=== PATIENT | female | born 1990 | race Caucasian/White ===

== ENCOUNTER → 2023-08-11 13:21 | Outpatient (CLI) | payer BC, SELFPAY ==
--- NOTE | 2023-08-11 13:21 | US_ITS ---
PROCEDURE: US TRANSVAGINAL CLINICAL INDICATION: heavy periods COMPARISON: No exams were available for comparison FINDINGS: Transvaginal sonographic images of the pelvis were obtained. UTERUS: 11.6cm x 7.9cmx 8.1cm with a combined endometrial thickness of 7.1mm. Fibroid 1: 5.9 cm x 6.1 cm x 6.1 cm, fundal Fibroid 2: 0.9 cm x 0.9 cm x 1.0, adjacent to uterus Fibroid 3: 2.2 cm x 1.6 cm x 1.9 cm, fundal LEFT OVARY: 5.0cmx3.9cmx3.1cm with a volume of 32.3ml. Follicle measuring 3.5 cm x 4.0 cm x 2.7 cm. RIGHT OVARY: 3.5cmx 1.8cmx2.1cm with a volume of 6.8ml. Both ovaries are seen and appear normal. Doppler flow to both ovaries are seen. There is no fluid in the cul-de-sac. IMPRESSION: 1. Uterus is anteverted and enlarged. There are 3 fibroids within the uterus. The largest measures 6.1 cm and is located in the fundus of the uterus. 2. Within the left ovary there is a follicle measuring 4.0 cm. 3. The right ovary appears normal. 4. No fluid in the cul-de-sac. Dictated by: Carlitos Barone MD 08/11/2023 15:02 Carlitos Barone MD in OV 08/11/2023 15:02
== END ==
LOC: RAD 13:21
PROVIDERS: PCP Nurse Practitioner Family; Visit Provider Nurse Practitioner Obstetrics & Gynecology
DX: N93.9 Abnormal uterine and vaginal bleeding, unspecified (principal)
CPT/HCPCS: 76830

== ENCOUNTER 2023-11-22 14:30 | Outpatient (CLI) | payer BC, SELFPAY ==
[2023-11-22 15:02] LABS: Basophils # 0.1 K/mm3 (0-0.2); Basophils % 1.1 % (0.1-2.0); Eosinophils # 0.1 K/mm3 (0.0-0.4); Eosinophils % 1.5 % (0.1-12.0); Hemoglobin 13.1 g/dL (12.2-16.2); Lymphocytes % 32.2 % (10-50); Mean Corpuscular HGB Conc 33.5 g/dL (31.8-35.4); Mean Corpuscular Hemoglobin 33.1 pg (27.0-31.2); Mean Corpuscular Volume 98.7 fl (81-99); Mean Platelet Volume 7.9 fl (7.4-10.4); Monocytes # 0.3 K/mm3 (0.1-1.0); Monocytes % 5.5 % (1.7-9.3); Neutrophils # 3.7 K/mm3 (1.8-7.8); Neutrophils % 59.7 % (37.0-80.0); Platelet Count 225 K/mm3 (142-424); Red Blood Count 3.96 M/mm3 (4.20-5.40); Red Cell Distribution Width 12.2 % (11.5-17.5); White Blood Count 6.2 K/mm3 (4.8-10.8)
[2023-11-22 15:16] LABS: Chloride 106 mmol/L (98-107); Potassium 3.8 mmoL/L (3.5-5.1); Sodium 137 mmol/L (136-145)
[2023-11-22 15:18] LABS: Blood Urea Nitrogen 15 mg/dl (7-17); Estimated Glomerular Filt Rate 83 ml/min (>60); GFR (African American) 100 ML/MIN (>60)
[2023-11-22 15:19] LABS: Alanine Aminotransferase 25 U/L (12-78); Albumin Level 4.1 g/dl (3.5-5.0); Albumin/Globulin Ratio 1.7 (1.1-1.8); Alkaline Phosphatase 58 U/L (38-126); Anion Gap 5.8 mEq/L (5-15); Aspartate Amino Transferase 24 U/L (14-36); Bilirubin,Total 0.2 mg/dl (0.2-1.3); Calcium 9.3 mg/dl (8.4-10.2); Carbon Dioxide 29 mmol/L (22.0-30.0); Globulin 2.4 g/dL (1.3-3.2); Glucose 92 mg/dl (74-100); Total Protein,Serum 6.5 g/dl (6.3-8.2)
[2023-11-22 15:40] LABS: HCG,Quantitative < 2 mIU/ml (0-5.42)
== END 2023-11-22 23:59 ==
LOC: LAB 14:31
PROVIDERS: PCP Nurse Practitioner Family; Visit Provider Nurse Practitioner Obstetrics & Gynecology
DX: Z01.818 Encounter for other preprocedural examination (principal); N92.0 Excessive and frequent menstruation with regular cycle; D25.9 Leiomyoma of uterus, unspecified
CPT/HCPCS: 36415; 80053; 84702; 85025; 86850

== ENCOUNTER 2023-11-29 06:26 | Inpatient (IN) | payer BC, SELFPAY ==
[2023-11-29] VITALS (22 sets, daily range): BP systolic 121–142; BP diastolic 66–90; PULSE 67–99; RESP 16–20; TEMP 36.4–43; O2SAT 95–100; BMI 24.8
[2023-11-29] MEDS: LACTATED RINGERS 1000ML 1,000 ML 25 ML IV (06:42)
--- NOTE | 2023-11-29 07:08 | P.PNANES_ITS ---
[facility] Disclaimer: The information contained in this section may have been updated after the patient was seen, as this information can be updated by other users. Medical History History of COVID-19 Sinus headache Anxiety Rheumatoid arthritis Surgical History Hx of cholecystectomy History of breast augmentation Family History Sister Cancer Mother Cancer Other Hyperlipidemia Hypertension Social History Smoking Status: Current every day smoker alcohol intake: current substance use type: denies use current occupational status: employed Travel in the last 8 weeks: Inside the [place] [facility] Anesthesia Checklist Patient Identification Patient Identification: Arm Band and Verbal (Name & ) Structural Data Admitted From: Home Planned Operative Procedure/s: [facility] Consent for Planned Operative Procedure(s) Verified: Yes NPO Status Verified Time NPO: 00:00 Chart Verification Results Verified: CBC, BMP and HCG Additional verifications Anesthesia Reactions: No Hx Blood Transfusions: No Blood Transfusion Reaction: No Airway Assessment Mallampati Score:: Class II C-Spine Mobility Assessed: Yes TMJ Mobility Assessed: Yes Dentition: Good Dentition Neurological Assessment Level of Consciousness: Awake Hx Seizures: No Numbness or tingling in extremities: No Anesthesia Plan Anesthesia Risk discussed: Yes Anesthesia Plan: Verified ASA Class: II Anesthesia Type: General w/block
--- NOTE | 2023-11-29 07:22 | HMH.PHAINT1 ---
Pharmacy Intervention Comments: HOME MEDICATION LIST VERIFIED VIA OUTSIDE PHARMACY
[2023-11-29] MEDS: CEFAZOLIN SODIUM 1 GM in 0.9 % SODIUM CHLORIDE 50 ML IV ×3 (07:27→23:07)
--- NOTE | 2023-11-29 09:22 | P.PNANES_ITS ---
[facility] Anesthesia Record Part I Anesthesia Record I Intake, IV Amount: 1,000 Hydration: Adequate Estimated blood loss (mL): 300 Urine output (mL): 100 Blood Pressure: 121/66 SaO2: 95 Pulse Rate: 72 Airway Patency: Patent Respiratory Rate: 18 Temperature: 97.6 F Patient is:: Drowsy and Oral/Nasal airway Stable to PACU at:: 09:15
--- NOTE | 2023-11-29 09:23 | EXP.OP.NOTE ---
Date of procedure: 11/29/23 Pre-op Diagnosis:: Pelvic pain, dyspareunia, fibroid uterus, menorrhagia Post-op Diagnosis:: Pelvic pain, dyspareunia, fibroid uterus, menorrhagia Procedure performed:: Total abdominal hysterectomy, bilateral Surgeon:: Carlitos Barone MD Healthcare Financial Analyst(s):: Dr. Malloy SYSTEMS SUPPORT OFFICER:: Emilia Mast Anesthesia: GETA Estimated blood loss (mL): 300 Clinical Note:: She is a 33-year-old 2 para 2 lady who complains of pelvic pressure and frequency and urgency of urination. Ultrasound confirmed that she had a 7 cm fibroid. She also has had severe menorrhagia that did not resolve with control pills. As result of that she was offered total abdominal hysterectomy and bilateral salpingectomy. Operative findings:: She had an anteverted bulky uterus with a 7 cm fibroid to the left of center. There was also a couple of smaller fibroids in the subserosal area. Operative note:: She was taken the operating room where general anesthesia was found be adequate. She was prepped and draped in the normal sterile fashion in the supine position. A Cochran catheter was in the bladder. A midline incision was made with knife and then carried through to the underlying layer of fascia with cautery. The fascia was opened in midline with cautery and extended superiorly and inferiorly with cautery. The rectus muscles were then in the midline and the peritoneum identified, tented up and entered sharply with Metzenbaum scissors. This incision was then extended superiorly and inferiorly with cautery. An O'Win-O'Cabello retractor was then placed within the abdominal cavity and the bowel was packed away with warm moist packs. The uterine cornua were grasped with long [place] clamps. The left round ligament was then suture-ligated, cut and tagged. The anterior peritoneum was then opened to the midline. The posterior aspect of the broad ligament was then fenestrated isolating the utero-ovarian pedicle. This was then clamped cut and doubly suture-ligated. We then further freed up the bladder anteriorly and using curved Antony clamps clamped across the uterine artery at the level of the internal os. This was clamped cut and suture-ligated. This was followed by the cardinal ligaments which were taken down in a [id number] fashion on the left side. We clamped cut and suture-ligated as we went. We then turned our attention to the patient's right side. Similarly the left round again was then suture-ligated cut and tagged. We then took down the anterior peritoneum to the midline joining up with the other side. The bladder was further dissected off anteriorly using both blunt and sharp dissection. The posterior aspect of the broad ligament was fenestrated with my finger and the utero-ovarian ligament was isolated. This was clamped cut and doubly suture-ligated. There was a small amount of bleeding along the peritoneum between the round ligament and uterine pedicle so this was clamped and suture-ligated. We then took down the cardinal ligaments on the right side clamping cutting and suture ligating as we went. The uterus was then freed up and Antony clamps were placed across the vaginal fornices bilaterally. The uterus and cervix was then dissected away from the top of the vagina. This was sent to pathology. The vaginal fornices on the left side was then suture-ligated with Antony suture and tagged. Starting on the opposite side I then closed the vaginal vault using a running locked 0 Vicryl suture. There was a small amount of bleeding on the posterior aspect of the peritoneum and using interrupted 2-0 Vicryl suture I was able to control bleeding here. I then elected to close the peritoneum using 2-0 Vicryl suture in a locked fashion from right to left. While doing this I placed a small piece of Surgicel underneath the peritoneum. Pelvis was then rinsed and hemostasis was assured. I had a small piece of Surgicel left so I elected to place it over the vaginal vault. The sponges and instruments were then removed from the abdominal cavity. Once again hemostasis was assured. The peritoneum was then closed using running 2-0 Vicryl suture. The fascia was closed by first grasping inferiorly with a [place] clamp and closing the fascia using running #1 Vicryl to the midline. This was tied. We then started superiorly and closed the fascia from superior to midline. Suture was tied individually. I then rinsed the incision well with warm saline and closed the subcutaneous tissues with running 2-0 Monocryl suture. The skin was closed with absorbable sutures. The incision was then cleaned with Hibiclens. Steri-Strips were applied to the incision. A sterile dressing was applied. She tolerated the procedure well and was taken to the recovery room in excellent condition. All sponge, instrument and needle counts were correct. The estimated blood loss was approximately 300 cc. Condition: stable Disposition: PACU Specimens:: Uterus and bilateral fallopian tubes. Complications:: None
[2023-11-29] MEDS: MEPERIDINE 25MG/ML 1ML SYRINGE 25 MG IV (09:35)
[2023-11-29] MEDS: MORPHINE 2MG/ML SYRINGE 2 MG IV (09:40)
[2023-11-29] MEDS: HYDROMORPHONE 2MG/ML SYRINGE 0.5 MG IV (09:51)
[2023-11-29] MEDS: LACTATED RINGERS 1000ML 1,000 ML 125 ML IV ×2 (10:16→19:16)
[2023-11-29] MEDS: KETOROLAC 30MG/ML VIAL 30 MG IV ×3 (10:17→20:46)
[2023-11-29] MEDS: PROMETHAZINE HCL 25MG/ML 1ML VIAL 12.5 MG IV (10:23)
[2023-11-29] MEDS: HYDROMORPHONE 2MG/ML SYRINGE 1 MG IV ×2 (10:32→13:22)
--- NOTE | 2023-11-29 11:04 | SUR.PHASEI ---
955- report called and given to [facility] RN. PAtitne taken upstairs via OB Bed. VSS upon arrival. Drainage noted on abdominal dressing. Abdominal dressing marked with skin marker prior to arrival to OB. Annel and OB RN at bedside.
[2023-11-29 11:32] LABS: Microscopic,Cath URINE MICROSCOPIC (MICROSCOPIC)
[2023-11-29 11:33] LABS: Appearance,Urine/Cath CLEAR (Clear); Bilirubin,Cath Negative (Negative); Blood, Urine/Cath TRACE-I (Negative); Color,Urine/Cath YELLOW (Yellow); Glucose,Urine/Cath (UA) Negative (Negative); Ketones,Urine/Cath Negative (Negative); Leukocyte Esterase,Cath Negative (Negative); Nitrate,Cath Negative (Negative); Protein,Urine/Cath Negative (Negative); Specific Gravity, Urine/Cath >= 1.030 (1.005-1.030); Urobilinogen,Cath 0.2 EU/dl (0.2)
[2023-11-29 11:57] LABS: Bacteria,Urine/Cath TRACE /lpf; Mucus,Urine/Cath Trace /lpf; WBC,Urine/Cath Occasional #/hpf (0-3)
--- NOTE | 2023-11-29 16:30 | PC.NURSE ---
Reassessment done at this time- no changes noted. patient controlled with prn meds. adequate output noted. lungs cta and bowel sounds active x4. patient has not passed gas yet. iv infusing. scuds in place. no edema noted. pulses 2+. plan is to d/c catheter and advance diet. poc explained to patient and she v/u
[2023-11-29] MEDS: SENNOSIDES 8.6MG/DOCUSATE 50MG TABLET 1 TAB PO (18:16)
[2023-11-29] MEDS: OXYCODONE 5MG IMMEDIATE RELEASE TABLET 10 MG PO ×2 (18:16→23:59)
--- NOTE | 2023-11-29 18:20 | PC.NURSE ---
dressing changed r/t serosang saturation. pt tolerated well
[2023-11-30] VITALS (7 sets, daily range): BP systolic 120–130; BP diastolic 69–90; PULSE 66–83; RESP 17–18; TEMP 36.4–37.1; O2SAT 96–99
[2023-11-30] MEDS: KETOROLAC 30MG/ML VIAL 30 MG IV ×4 (03:34→21:32)
[2023-11-30] MEDS: LACTATED RINGERS 1000ML 1,000 ML 125 ML IV (04:08)
[2023-11-30] MEDS: OXYCODONE 5MG IMMEDIATE RELEASE TABLET 10 MG PO ×4 (06:35→19:04)
[2023-11-30 06:41] LABS: Basophils # 0.1 K/mm3 (0-0.2); Basophils % 0.6 % (0.1-2.0); Eosinophils # 0.1 K/mm3 (0.0-0.4); Eosinophils % 1.5 % (0.1-12.0); Hemoglobin 10.8 g/dL (12.2-16.2); Lymphocytes # 1.8 K/mm3 (0.7-4.5); Lymphocytes % 20.7 % (10-50); Mean Corpuscular HGB Conc 31.8 g/dL (31.8-35.4); Mean Corpuscular Volume 100.6 fl (81-99); Mean Platelet Volume 7.8 fl (7.4-10.4); Monocytes # 0.4 K/mm3 (0.1-1.0); Neutrophils # 6.3 K/mm3 (1.8-7.8); Neutrophils % 72.2 % (37.0-80.0); Platelet Count 199 K/mm3 (142-424); Red Blood Count 3.37 M/mm3 (4.20-5.40); Red Cell Distribution Width 12.4 % (11.5-17.5); White Blood Count 8.8 K/mm3 (4.8-10.8)
[2023-11-30 07:07] LABS: Chloride 107 mmol/L (98-107)
[2023-11-30 07:08] LABS: Potassium 3.5 mmoL/L (3.5-5.1); Sodium 136 mmol/L (136-145)
[2023-11-30 07:11] LABS: Anion Gap 2.5 mEq/L (5-15); Blood Urea Nitrogen 7 mg/dl (7-17); Calcium 8.1 mg/dl (8.4-10.2); Carbon Dioxide 30 mmol/L (22.0-30.0); Creatinine Clearance Estimated 170 mL/min (50-200); Estimated Glomerular Filt Rate 115 ml/min (>60); GFR (African American) 139 ML/MIN (>60); Glucose 103 mg/dl (74-100)
--- NOTE | 2023-11-30 09:00 | PC.NURSE ---
IV saline locked at this time.
--- NOTE | 2023-11-30 09:20 | EXP.ANES.II ---
[facility] Anesthesia Record Part II Anesthesia Record Part II Discharge Time: 09:45 Destination: Surgical Day Care (OP Surgery) PACU nurse assessment reviewed?: Yes Patient Condition:: Good Anesthesia Complications:: None Swallowing reflex intact?: Yes Airway Patency: Patent Cyanosis?: No Blood Pressure: 130/78 SaO2: 99 Respiratory Rate: 18 Pulse Rate: 83 Temperature: 97.5 F Mental Status: Alert & Oriented Pain level:: 3 Nausea and/or vomitting:: None Intake, IV Amount: 0 Hydration: Adequate
[2023-11-30] MEDS: NICOTINE 21MG/24HR PATCH 21 MG TD (09:28)
[2023-11-30] MEDS: SIMETHICONE 80MG CHEWABLE TABLET 160 MG PO ×2 (09:28→14:55)
--- NOTE | 2023-11-30 09:39 | EXP.ACUTE.PN ---
Subjective *Date: 11/30/23 *Time: 09:39 Interval history: She is 1 day postop from a TY and bilateral salpingectomy. She is doing very well. Midline incision looks good. She denies any chest pain, shortness of breath or calf tenderness. She has been eating and drinking and ambulating. She is voiding well. hemoglobin is 10.8. Electrolytes are normal. Medical Exam Vital signs and Labs for Last 24 Hours: Vital Signs Temp Pulse Resp BP Pulse Ox O2 Del Method O2 Flow Rate 11/30/23 09:20 18 11/30/23 06:37 Room Air 11/30/23 05:03 Room Air 11/30/23 04:11 97.7 F 66 17 122/69 98 Room Air 11/30/23 04:04 98 Room Air 11/30/23 03:39 Room Air 11/30/23 01:24 Room Air 11/30/23 00:02 Room Air 11/29/23 23:09 Room Air 11/29/23 22:22 Room Air 11/29/23 20:46 Room Air 11/29/23 20:30 97 Room Air 11/29/23 20:15 98.6 F 78 17 123/71 97 Room Air 11/29/23 19:45 Room Air 11/29/23 18:38 Room Air 11/29/23 17:43 Room Air 11/29/23 17:00 99 H 18 126/76 99 Room Air 11/29/23 16:30 Room Air 11/29/23 16:00 69 18 142/90 H 99 Room Air 11/29/23 15:00 98.2 F 67 18 126/74 99 Room Air 11/29/23 14:07 Nasal Cannula 2 11/29/23 14:00 70 16 124/80 98 Nasal Cannula 2 11/29/23 13:00 75 17 135/90 99 Nasal Cannula 2 11/29/23 12:30 73 17 134/89 98 Nasal Cannula 2 11/29/23 12:04 Nasal Cannula 2 11/29/23 12:00 98.2 F 73 17 132/86 98 Nasal Cannula 2 11/29/23 11:30 82 16 130/83 98 Nasal Cannula 2 11/29/23 11:00 98.2 F 75 16 129/84 95 Room Air 11/29/23 10:45 77 16 131/79 95 Nasal Cannula 2 11/29/23 10:30 Room Air 11/29/23 10:30 78 16 141/81 H 96 Room Air 11/29/23 10:30 99 Room Air 11/29/23 10:15 98.9 F 81 18 135/84 98 Room Air 11/29/23 10:00 98.9 F 83 18 130/78 99 Room Air 11/29/23 10:00 98.9 F 83 18 130/78 99 Room Air 11/29/23 09:45 97.5 F L 83 18 130/78 99 Room Air Intake and Output 11/29/23 11/30/23 11/30/23 19:59 03:59 11:59 Intake Total 2254 / 2254 Output Total 1200 / 2150 400 / 2150 550 / 2150 Balance -1200 / 104 -400 / 104 1704 / 104 Intake: Intake, Total IV Amount 2254 / 2254 Lactated Ringers 1000ML 1,000 2254 / 2254 ml @ 125 mls/hr IV .Q8H [facility] Rx# :[id number] Output: Output, Urine Amount 400 / 950 550 / 950 Output, Urine Amount (Catheter) 1200 / 1200 Cochran 1200 / 1200 Laboratory Results - last 24 hr 11/29/23 07:35: Urine Color Yellow, Urine Appearance Clear, Urine pH 7.0, Ur Specific [place] >= 1.030, Urine Protein Negative, Urine Glucose (UA) Negative, Urine Ketones Negative, Urine Blood Trace-i, Urine Nitrate Negative, Urine Bilirubin Negative, Urine Urobilinogen 0.2, Ur Leukocyte Esterase Negative, Urine RBC 3-5, Urine WBC Occasional, Ur Squamous Epith Cells 3-5, Urine Bacteria Trace 11/30/23 06:20: WBC 8.8, RBC 3.37 L, Hgb 10.8 L, Hct 34.0 L, MCV 100.6 H, MCH 32.0 H, MCHC 31.8, RDW 12.4, Plt Count 199, MPV 7.8, Neut % (Auto) 72.2, Lymph % (Auto) 20.7, Bibb % (Auto) 5.0, Eos % (Auto) 1.5, Baso % (Auto) 0.6, Neut # (Auto) 6.3, Lymph # (Auto) 1.8, Bibb # (Auto) 0.4, Eos # (Auto) 0.1, Baso # (Auto) 0.1, Sodium 136, Potassium 3.5, Chloride 107, Carbon Dioxide 30, Anion Gap 2.5 L, BUN 7, Creatinine 0.60, Estimated Creat Clear 170, Estimated GFR 115, Est GFR ( Amer) 139, Glucose 103 H, Calcium 8.1 L I & O for Labs for Last 24 Hours: Intake & Output 11/27/23 11/28/23 11/29/23 11/30/23 11:59 11:59 11:59 11:59 Intake Total 1000 / 1000 2254 / 2254 Output Total 2150 / 2150 Balance 1000 / 999 104 / 104 Weight 178 lb Head: Present atraumatic ENT: Present normal exam Neck: Present normal inspection Respiratory: Present normal respiratory effort; Absent accessory muscle use Cardiac: Present Reg Rate and Rhythm GI: Present soft and normal bowel sounds; Absent distention, tenderness, guarding, rebound or rigidity Comments:: Her incision is clean and dry. Rectal (female): Present deferred (female): Present deferred Extremities: Present normal inspection and full ROM; Absent tenderness Comment:: No calf tenderness. Skin: Present intact; Absent cyanosis Assessment and Plan *Assessment and plan (1) Fibroid uterus: Status: Acute Qualifiers: Uterine leiomyoma location: intramural Qualified Code(s): D25.1 - Intramural leiomyoma of uterus Category: Medical Code(s): D25.9 - Leiomyoma of uterus, unspecified (2) Menorrhagia: Status: Acute Qualifiers: Menorrhagia type: with irregular cycle Qualified Code(s): N92.1 - Excessive and frequent menstruation with irregular cycle Category: Medical Code(s): N92.0 - Excessive and frequent menstruation with regular cycle (3) Dyspareunia: Status: Acute Category: Medical (4) Dysmenorrhea: Status: Acute Category: Medical Code(s): N94.6 - Dysmenorrhea, unspecified Plan She is doing very well 1 day post hysterectomy. Her vital signs are stable. She is eating and drinking and ambulating. She has not had a bowel movement yet. She had a tap block at the time of her surgery and this seems to be helping with her lower abdominal pain. Since she is doing so well today, we will consider sending her home tomorrow.
--- NOTE | 2023-11-30 10:00 | PC.NURSE ---
Medicated with Oxycodone 10mg PO prior to taking a shower. Saline lock secured.
--- NOTE | 2023-11-30 10:15 | PC.NURSE ---
Getting up to shower. Bed linens changed.
--- NOTE | 2023-11-30 10:22 | PC.NURSE ---
Pt taken a shower at this time. Ambulating without difficulty. Room straightened and bed linens changed. Pt's mother remains at bs attentive to pt's needs. IV fluids stopped and IV saline lock secured for shower.
--- NOTE | 2023-11-30 10:40 | PC.NURSE ---
Pt out of the shower, abdominal binder applied to abdomen per request. Family x2 at bs visiting.
--- NOTE | 2023-11-30 11:29 | PC.NURSE ---
Medicated with Oxycodone 10mg PO prior to getting a shower.
--- NOTE | 2023-11-30 13:50 | PC.NURSE ---
Pt sleeping soundly. Pt's remains at bs.
--- NOTE | 2023-11-30 18:08 | PC.NURSE ---
Abdominal binder reapplied. Pt up ambulating in the hallway. Incision remains SKETCH ARTIST with loose abd pad over it. Denies problems with voiding. (+)BS all quads. Tolerating regular diet. Lungs remain clear throughout. Abdomen slightly swollen, soft to palpate. Incision well approximated, active bleeding noted. IV remains saline locked.
[2023-11-30] MEDS: HYDROMORPHONE 2MG/ML SYRINGE 1 MG IV (20:04)
[2023-12-01] MEDS: OXYCODONE 5MG IMMEDIATE RELEASE TABLET 10 MG PO ×2 (00:58→10:05)
[2023-12-01] MEDS: KETOROLAC 30MG/ML VIAL 30 MG IV (03:11)
[2023-12-01 03:18] VITALS: BP 134/86; PULSE 67; RESP 16; TEMP 36.7; O2SAT 97
[2023-12-01] MEDS: ACETAMINOPHEN 500MG TAB 1000 MG PO (07:04)
--- NOTE | 2023-12-01 07:07 | PC.NURSE ---
Pt has complained of lower mid abdominal pain and right shoulder pain multiple times t/o shift requiring PRN oxycodone and dilaudid. Incision to lower abd BETHANIE. Scant amount of drainage noted from bottom of incision. Pt has been ambulating room independently. Pt states she had 1 BM through night.
--- NOTE | 2023-12-01 08:13 | PC.NURSE ---
Pt taking a shower at this time. Incision remains MANAGER STRATEGIC DEVELOPMENT, well approximated and healing well. Steri-strips intact. Pt reports having BM last night. BS x4 hyperactive this a.m. Lungs remain clear throughout. Reports voiding well. Saline lock remains rt/AC.
--- NOTE | 2023-12-01 08:30 | PC.NURSE ---
here to see pt. Pt is currently taking a shower. States he will return around noon.
[2023-12-01 08:31] VITALS: BP 127/87; PULSE 75; RESP 18; TEMP 36.8; O2SAT 99
[2023-12-01 08:47] VITALS: O2SAT 99
[2023-12-01] MEDS: KETOROLAC 10MG TABLET 10 MG PO (10:04)
--- NOTE | 2023-12-01 13:25 | EXP.DC.SUM ---
General Admission date:: 11/29/23 Discharge date: 12/01/23 HPI HPI HPI: She is a 33-year-old lady who complains of extremely heavy periods. She also has pressure and discomfort. She has pain with intercourse. She has multiple fibroids in the uterus the largest of which is 6 cm. As result of that she was offered total abdominal hysterectomy and bilateral salpingectomy. Hospital Course Hospital Course Hospital Course: On November 29, 2023 she underwent a total abdominal hysterectomy and bilateral salpingectomy through a midline incision. She has done well postoperatively and has remained afebrile throughout her hospitalization. She is postoperative day 2. She had a TAP block that seems to be working well. She denies any shortness of breath, calf tenderness or chest pain. She is eating and drinking and ambulating. She has had a bowel movement. She is voiding well. She will be discharged home to follow-up with me in approximately 2 weeks time. She will continue with her home medications. She was given a prescription for Toradol 10 mg to take every 6 hours as needed for pain, number 20 tablets as well as Percocet 5/325 number 20 tablets. She was given the usual instructions with respect to limiting her activity, driving and sexual activity. She was given instructions with respect to wound care. Her condition on discharge is stable and improved. Exam Data for Last 24 hours Vital signs and Labs for Last 24 Hours: Temp Pulse Resp BP Pulse Ox O2 Del Method O2 Flow Rate 98.3 F 75 18 127/87 99 Room Air 2 12/01/23 08:31 12/01/23 08:31 12/01/23 08:31 12/01/23 08:31 12/01/23 08:47 12/01/23 10:10 11/29/23 14:07 I & O for Last 24 hours: Intake & Output 11/29/23 11/30/23 12/01/23 12/02/23 11:59 11:59 11:59 11:59 Intake Total 1000 / 1000 2254 / 2254 Output Total 2150 / 2150 0 / 0 Balance 1000 / 1000 104 / 104 0 / 0 Weight 178 lb Constitutional Constitutional: no acute distress *Routine HEENT Exam Head: Present normocephalic *Routine Neck Exam Neck: Present supple and full ROM *Routine Respiratory Exam Respiratory: Present normal respiratory effort; Absent accessory muscle use *Routine Cardiovascular Exam Cardiovascular: Present RRR *Routine Abdominal Exam Abdominal: Present soft and normoactive bowel sounds; Absent tenderness, distended or rebound Comments: Her incision is clean and dry. DS: Diagnosis Discharge Diagnosis (1) Fibroid uterus: Status: Acute Code(s): D25.9 - Leiomyoma of uterus, unspecified Qualifiers: Uterine leiomyoma location: intramural Qualified Code(s): D25.1 - Intramural leiomyoma of uterus (2) Menorrhagia: Status: Acute Code(s): N92.0 - Excessive and frequent menstruation with regular cycle Qualifiers: Menorrhagia type: with regular cycle Qualified Code(s): N92.0 - Excessive and frequent menstruation with regular cycle (3) Dyspareunia: Status: Acute (4) Dysmenorrhea: Status: Acute Code(s): N94.6 - Dysmenorrhea, unspecified Meds Home Medications and Allergies Home Medications Medication Instructions Recorded Confirmed Type multivitamin with iron 1 tab PO DAILY 10/01/21 11/29/23 History norgestimate 0.25 mg-ethinyl 1 tab PO DAILY #84 tabs 11/09/22 11/29/23 Rx estradiol 35 mcg tablet (Sprintec (28)) hydroxychloroquine 200 mg tablet 400 mg PO DAILY 07/05/23 11/29/23 History (Plaquenil) fluoxetine 40 mg capsule (Prozac) 40 mg PO DAILY 08/31/23 11/29/23 History ketorolac 10 mg tablet 10 mg PO Q6H #20 tabs 12/01/23 Rx oxycodone-acetaminophen 5 mg-325 1 tab PO Q6H PRN pain #20 tabs 12/01/23 Rx mg tablet New Prescriptions to Start Prescriptions: ketorolac Carlitos Barone oxycodone-acetaminophen Carlitos Barone Allergies Allergy/AdvReac Type Severity Reaction Status Date / Time codeine Allergy Verified 11/29/23 06:47 [From Tylenol-Codeine #3] Discharge Plan Disposition Patient Disposition: Home, Self-Care Condition: Good Discharge Order Discharge Orders: Discharge Order (Routine); Ordered 12/01/23 Ordered By: Carlitos Barone Follow up Plan Follow up with: Carlitos Barone MD [Staff Physician] - 12/20/23 8:45 am Prescriptions/Medication Reconciliation: New ketorolac 10 mg Tablet 10 mg PO Q6H Qty: 20 0RF oxycodone-acetaminophen 5-325 mg tablet 1 tab PO Q6H PRN (Reason: pain) Qty: 20 0RF Continued multivitamin with iron Tablet 1 tab PO DAILY hydroxychloroquine [Plaquenil] 200 mg tablet 400 mg PO DAILY Patient Comments: TAKE 1 TABLET 2 TIMES EACH DAY fluoxetine [Prozac] 40 mg capsule 40 mg PO DAILY Patient Comments: Take 1 capsule by mouth every day. norgestimate-ethinyl estradiol [Sprintec (28)] 0.25-35 mg-mcg tablet 1 tab PO DAILY Qty: 84 4RF Problem Reconciliation Problems Reviewed?: Yes Patient Discharge Instructions ACTIVITY: No heavy lifting DIET: continue same diet and regular diet Patient Instructions: How to Care for a Surgical Wound, Hysterectomy -- Open Surgery, DI for Hysterectomy, Surgical Site Infection Providers Primary Care Provider: Kristan Mejia Admit Provider: Carlitos Barone Attending Provider: Carlitos Barone
--- NOTE | 2023-12-01 13:30 | P.HP_ITS ---
History of Present Illness *Admission Date: 11/29/23 *History of present illness: She is a 33-year-old lady who complains of extremely heavy periods. She also has pressure and discomfort. She has pain with intercourse. She has multiple fibroids in the uterus the largest of which is 6 cm. As result of that she was offered total abdominal hysterectomy and bilateral salpingectomy. [facility] Disclaimer: The information contained in this section may have been updated after the patient was seen, as this information can be updated by other users. Medical History History of COVID-19 Sinus headache Anxiety Rheumatoid arthritis Surgical History Hx of cholecystectomy History of breast augmentation Family History Hyperlipidemia Cancer Sister Mother Hypertension Social History Smoking Status: Current every day smoker alcohol intake: current substance use type: denies use current occupational status: employed Travel in the last 8 weeks: Inside the [place] Review of Systems Review of Systems Review of systems:: pertinent systems reviewed and negative unless documented below Meds Home Medications and Allergies Home Medications Medication Instructions Recorded Confirmed Type multivitamin with iron 1 tab PO DAILY 10/01/21 11/29/23 History norgestimate 0.25 mg-ethinyl 1 tab PO DAILY #84 tabs 11/09/22 11/29/23 Rx estradiol 35 mcg tablet (Sprintec (28)) hydroxychloroquine 200 mg tablet 400 mg PO DAILY 07/05/23 11/29/23 History (Plaquenil) fluoxetine 40 mg capsule (Prozac) 40 mg PO DAILY 08/31/23 11/29/23 History ketorolac 10 mg tablet 10 mg PO Q6H #20 tabs 12/01/23 Rx oxycodone-acetaminophen 5 mg-325 1 tab PO Q6H PRN pain #20 tabs 12/01/23 Rx mg tablet New Prescriptions to Start Prescriptions: ketorolac Carlitos Barone oxycodone-acetaminophen Carlitos Barone Allergies Allergy/AdvReac Type Severity Reaction Status Date / Time codeine Allergy Verified 04/08/24 06:47 [From Tylenol-Codeine #3] Exam Data for Last 24 hours Vital signs and Labs for Last 24 Hours: Temp Pulse Resp BP Pulse Ox O2 Del Method O2 Flow Rate 98.3 F 75 18 127/87 99 Room Air 2 12/01/23 08:31 12/01/23 08:31 12/01/23 08:31 12/01/23 08:31 12/01/23 08:47 12/01/23 10:10 11/29/23 14:07 I & O for Last 24 hours: Intake & Output 11/29/23 11/30/23 12/01/23 12/02/23 11:59 11:59 11:59 11:59 Intake Total 1000 / 1000 2254 / 2254 Output Total 2150 / 2150 0 / 0 Balance 1000 / 1000 104 / 104 0 / 0 Weight 178 lb Constitutional Constitutional: no acute distress *Routine HEENT Exam Head: Present normocephalic Eye: Present EOMI and PERRL ENT: Present mucous membranes moist *Routine Neck Exam Neck: Present supple; Absent lymphadenopathy *Routine Respiratory Exam Respiratory: Present CTA bilaterally *Routine Cardiovascular Exam Cardiovascular: Present RRR *Routine Abdominal Exam Abdominal: Present soft and normoactive bowel sounds; Absent tenderness *Routine Rectal Exam Rectal:: deferred *Routine Genitalia Exam Genitalia:: deferred *Routine Extremities Exam Extremities: Absent cyanosis, clubbing or edema *Routine Skin Exam Skin: Present warm; Absent rash *Routine Neurological Exam Neurological: Present alert and oriented X3 Assessment and Plan *Assessment and plan (1) Dysmenorrhea: Status: Acute Category: Medical Code(s): N94.6 - Dysmenorrhea, unspecified (2) Dyspareunia: Status: Acute Category: Medical (3) Fibroid uterus: Status: Acute Qualifiers: Uterine leiomyoma location: intramural Qualified Code(s): D25.1 - Intramural leiomyoma of uterus Category: Medical Code(s): D25.9 - Leiomyoma of uterus, unspecified (4) Menorrhagia: Status: Acute Qualifiers: Menorrhagia type: with regular cycle Qualified Code(s): N92.0 - Excessive and frequent menstruation with regular cycle Category: Medical Code(s): N92.0 - Excessive and frequent menstruation with regular cycle Plan She is a admitted for total abdominal hysterectomy and bilateral salpingectomy through a midline incision.
== END 2023-12-01 13:55 | disposition home or self-care (01) | DRG 743 ==
LOC: OB 11-30 02:55
PROVIDERS: Admitting Provider Nurse Practitioner Obstetrics & Gynecology; PCP Nurse Practitioner Family; Visit Provider Nurse Practitioner Obstetrics & Gynecology
PROC: 0UT90ZZ Resection of Uterus, Open Approach (ICD-10-PCS; CPT 58150; principal; 2023-11-29 07:30)
DX: D25.9 Leiomyoma of uterus, unspecified (principal); N92.0 Excessive and frequent menstruation with regular cycle; N94.10 Unspecified dyspareunia
CPT/HCPCS: 58150; 80048; 81001; 85025; 86850; 96374; J3490; C9290; J0131; J2405